=== PATIENT | female | born 1970 | race Caucasian/White ===

== ENCOUNTER → 2020-08-03 12:00 | Outpatient (CLI) | payer BC, SELFPAY ==
[2020-08-03 15:32] LABS: Follicle Stimulating Hormone 27.6 mIU/mL
== END ==
PROVIDERS: PCP Obstetrics & Gynecology Gynecology; Referring Provider Obstetrics & Gynecology Gynecology; Visit Provider Obstetrics & Gynecology Gynecology
DX: N91.2 Amenorrhea, unspecified (principal)
CPT/HCPCS: 36415; 83001

== ENCOUNTER → 2022-12-01 | Outpatient (CLI) | payer OTHER, SELFPAY ==
--- NOTE | 2022-12-01 12:13 | US_ITS ---
STUDY: THYROID ULTRASOUND REASON FOR EXAM: Female, 52 years old. THYROID MASS FELT BY DOCTOR TECHNIQUE: Ultrasound evaluation of the thyroid was performed with real-time and static coppola-scale imaging. COMPARISON: None. FINDINGS: RIGHT LOBE: The right lobe of the thyroid gland is enlarged and measures 5.3 cm x 1.3 cm x 1.2 cm. There is a homogeneous echotexture. There is a dominant 1.3 cm x 0.8 cm x 0.7 cm solid nodule in the lower pole of the right lobe of the thyroid. 3 subcentimeter cystic and solid nodules are also seen scattered throughout the right lobe. LEFT LOBE: The left lobe of the thyroid gland is enlarged and measures 5.6 cm x 1.8 cm x 2.1 cm. There is a homogeneous echotexture. There is a 3.2 cm x 2.1 cm x 1.9 cm heterogeneous cyst in the midpole. Nodular densities are seen along its inferior aspect. Biopsy recommended. ISTHMUS: The isthmus measures 2 mm. The regional lymph nodes are normal. US/Thyroid IMPRESSION: Diffuse enlargement of both lobes of the thyroid gland. Dominant complex cystic nodule in the midportion of the left lobe measuring 3.2 cm x 2.17 x 1.9 cm. Biopsy recommended. 1.3 cm x 0.8 cm x 0.7 cm solid nodule in the lower pole of the right lobe. Electronically Signed: Daniel Jacobo MD at 14:18 EDT ,
== END | disposition home or self-care (01) ==
PROVIDERS: PCP Internal Medicine; Referring Provider Obstetrics & Gynecology Gynecology; Visit Provider Obstetrics & Gynecology Gynecology
DX: E07.9 Disorder of thyroid, unspecified (principal)
CPT/HCPCS: 76536